=== PATIENT | male | born 1970 ===

== ENCOUNTER → 2018-09-13 21:13 | Outpatient (REF) | payer OTHER, SELFPAY ==
[2018-09-13 21:51] LABS: Add Manual Diff / Slide Review NO; Basophils Absolute Auto 0 /uL (0-100); Basophils Percent Auto 0.4 % (0-2); Eosinophils Absolute Auto 100 /uL (0-450); Eosinophils Percent Auto 1.6 % (2-4); Hematocrit 51.4 % (41-53); Lymphocytes Absolute Auto 1400 /uL (1100-4500); Lymphocytes Percent Auto 20.5 % (25-40); Mean Corpuscular Hemoglobin 27.5 PG (26-34); Mean Corpuscular Volume 83.1 fL (80-100); Monocytes Absolute Auto 900 /uL (0-900); Monocytes Percent Auto 13.2 % (3-14); Neutrophils Absolute Auto 4400 /uL (1500-7000); Neutrophils Percent Auto 64.3 % (50-75); Platelet Count 249 X10^3/uL (150-400); Red Blood Cell Count 6.18 X10^6/uL (4.5-5.9); Red Cell Distribution Width 13.1 % (11.6-14.8); White Blood Cell Count 6.8 X10^3/uL (4.5-11.0)
[2018-09-13 22:07] LABS: Hemoglobin A1C% w Est Avg Glu 5.2 % (4.0-6.0)
[2018-09-15 15:04] LABS: Estradiol 27 pg/mL (< 40)
[2018-09-15 18:44] LABS: Sex Hormone Binding Globulin 35 nmol/L (10-50)
[2018-09-17 22:48] LABS: Testosterone Free 61.7 pg/mL (35.0-155.0); Testosterone Total 548 ng/dL (250-1100)
== END ==
LOC: LAB 21:13
PROVIDERS: Visit Provider Naturopath
DX: E29.1 Testicular hypofunction (principal); F43.21 Adjustment disorder with depressed mood; R20.2 Paresthesia of skin; R53.83 Other fatigue
CPT/HCPCS: 36415; 82670; 83036; 84153; 84154; 84270; 84402; 84403; 85025

== ENCOUNTER → 2018-10-16 21:08 | Outpatient (REF) | payer OTHER, SELFPAY ==
[2018-10-16 22:56] LABS: Hepatitis B Surface Antigen NEGATIVE s/c (NEGATIVE)
[2018-10-16 23:19] LABS: Hep C Virus Ab w/Reflex Quant NEGATIVE s/c (NEGATIVE)
[2018-10-18 14:05] LABS: Hepatitis B Core Antibody Nonreactive (Nonreactive)
[2018-10-18 14:18] LABS: Hepatitis B Surf AB Imm QUANT < 5 mIU/mL (> 9)
[2018-10-18 14:32] LABS: HSV 2 IGG AB < 0.90 index (< 0.90); HSV1IGG < 0.90 index (< 0.90)
[2018-10-18 15:01] LABS: RPR Screen Nonreactive (Nonreactive)
[2018-10-18 17:58] LABS: HIV Ag/Ab, 4th Gen Nonreactive (Nonreactive)
== END ==
LOC: LAB 21:08
PROVIDERS: Visit Provider Naturopath
DX: Z11.3 Encounter for screening for infections with a predominantly sexual mode of transmission (principal)
CPT/HCPCS: 36415; 86317; 86592; 86695; 86696; 86703; 86704; 86803; 87340; 87491; 87591